=== PATIENT | female | born 1995 | race Caucasian/White ===

== ENCOUNTER 2021-10-16 13:47 | Outpatient (REF) | payer BC, SELFPAY ==
[2021-10-16 16:59] LABS: Hematocrit 41.8 % (37.0-47.0); Hemoglobin 13.8 g/dl (12.0-16.0); Mean Corpuscular Hemoglobin 30.8 pg (27.0-33.0); Mean Corpuscular Volume 93.3 fL (80.0-98.0); Platelet Count 429 X10*3/uL (160-400); Red Blood Count 4.48 X10*6/uL (4.20-5.50); Red Cell Distribution Width 12.5 % (11.0-16.0)
[2021-10-16 17:04] LABS: Appearance Urine CLOUDY; Color Urine YELLOW; Glucose Urine UA NEG (NEG); Leukocyte Esterase Urine NEG (NEG); Nitrite Urine NEG (NEG); Specific Gravity - Urine 1.015 (1.005-1.025); Urine Blood NEG (NEG); Urine Ketones NEG (NEG); Urine Protein NEG (NEG-TRACE)
[2021-10-16 17:27] LABS: Alanine Aminotransferase 25 U/L (0-31); Albumin Level 4.7 g/dL (3.5-5.0); Alkaline Phosphatase 80 U/L (39-117); Anion Gap 13 (12-20); Aspartate Amino Transferase 18 U/L (5-31); Bilirubin Total 0.3 mg/dL (0.0-1.0); Blood Urea Nitrogen 14 mg/dL (9-16); Calcium 10.6 mg/dL (8.4-10.2); Carbon Dioxide 27 mmol/L (22-29); Chloride 104 mmol/L (96-108); Cholesterol 177 mg/dL; Estimated Glomerular Filt Rate > 60; Glucose Fasting 94 mg/dL (60-99); HDL Cholesterol 57 mg/dL; LDL Cholesterol Calculated 71 mg/dl; Potassium 4.4 mmol/L (3.3-5.1); Sodium 140 mmol/L (135-145); Total Protein 7.7 g/dL (6.5-8.0); Triglycerides 249 mg/dL
[2021-10-16 17:34] LABS: TSH reflex Free T4 27.02 uIU/mL (0.32-4.0)
[2021-10-16 18:08] LABS: Free T4 (Free Thyroxine) 0.78 ng/dL (0.71-1.85)
[2021-10-16 19:36] LABS: Amorphous Sediment Urine 4+ /LPF; Mucus Urine TRACE /LPF; Squamous Epithelial Cell Urine 1+ /LPF; WBC Urine 0 /HPF (0-4)
[2021-10-18 05:16] LABS: Triiodothyronine T3 Free 3.3 pg/mL (2.3-4.2)
== END 2021-10-16 13:48 | disposition home or self-care (01) ==
LOC: HO.HMGCLDS 13:47
PROVIDERS: Visit Provider Internal Medicine
DX: Z00.00 Encounter for general adult medical examination without abnormal findings (principal); E03.9 Hypothyroidism, unspecified; E66.3 Overweight
CPT/HCPCS: 36415; 80053; 80061; 81001; 84439; 84443; 84481; 85027

== ENCOUNTER 2021-11-23 09:40 | Outpatient (REF) | payer BC, SELFPAY ==
--- NOTE | ~2021-11-23 | XR_ITS ---
EXAMINATION: XR HIP, LEFT WITH PELVIS CLINICAL INFORMATION: Pain. COMPARISON: None TECHNIQUE: Two views of the left hip. AP pelvis one view. FINDINGS: AP PELVIS AND LEFT HIP: There is normal symmetry of bilateral hip joints and SI joints. No fracture involving the pelvic bones. AP and frog-leg views left hip reveal no visible fracture, dislocation. No bony erosive changes. The soft tissues are normal. XR/XR hip LT w [id number] IMPRESSION: Unremarkable AP pelvis and left hip exam.
== END 2021-11-23 09:41 | disposition home or self-care (01) ==
LOC: HO.HMGCX 09:40
PROVIDERS: PCP Internal Medicine; Visit Provider Internal Medicine
DX: M25.552 Pain in left hip (principal)
CPT/HCPCS: 73502

== ENCOUNTER 2022-02-11 10:10 | Outpatient (REF) | payer BC, SELFPAY ==
[2022-02-11 12:06] LABS: TSH reflex Free T4 36.11 uIU/mL (0.32-4.0)
[2022-02-11 12:51] LABS: Free T4 (Free Thyroxine) 1.13 ng/dL (0.71-1.85)
[2022-02-12 04:03] LABS: Triiodothyronine T3 Free 3.3 pg/mL (2.3-4.2)
== END 2022-02-11 10:11 | disposition home or self-care (01) ==
LOC: HO.HMGCLDS 10:10
PROVIDERS: PCP Internal Medicine; Visit Provider Internal Medicine
DX: E03.9 Hypothyroidism, unspecified (principal)
CPT/HCPCS: 36415; 84439; 84443; 84481